=== PATIENT | male | born 1945 | race Hispanic/Latino ===

== ENCOUNTER 2016-09-24 17:42 | Emergency (ER) | payer MEDICARE ==
[2016-09-24 17:46] VITALS: BMI 25.0
[2016-09-24 17:49] VITALS: TEMP 97.8
[2016-09-24] MEDS ORDERED: TDAP Vaccine 0.5 mL Syr IM ONE (18:20)
[2016-09-24] MEDS ORDERED: Absorbable Gelatin Sponge Size 12-7 ONE (18:50)
--- NOTE | 2016-09-24 18:50 | ED PDOC ---
Arrival/HPI <Aislinn Kendrick - Last Filed: 09/24/16 19:08> - General Historian: Patient - History of Present Illness Symptom Onset: Sudden Symptom Course: Unchanged Context: Home <Faustino Escamilla - Last Filed: 09/24/16 19:16> - General Chief Complaint: Trauma Time Seen by Provider: 09/24/16 17:58 - History of Present Illness Narrative History of Present Illness (Text): 09/24/16 19:01 A 71 year old male presents to the emergency department after fall and hitting head. Patient reports was moving a chair up a set of stairs with assistance, states chair got heavier and missed a step and fell to his right side, hitting head and arm. Patient notes pain to right side of head. Patient denies loss of consciousness, dizziness, chest pain, back pain or any other complaints at this time. Patient tetanus status unknown. (Faustino Escamilla) Modifying Factors (Text): none (Faustino Escamilla) Past Medical History - Provider Review Nursing Documentation Reviewed: Yes - Tetanus Immunization Tetanus Immunization: Unknown - Cardiac Hx Cardiac Disorders: Yes Hx Hypertension: Yes - Endocrine/Metabolic Hx Endocrine Disorders: Yes Hx Diabetes Mellitus Type 2: Yes - Genitourinary/Gynecological Hx Prostate Problems: Yes - Psychiatric Hx Substance Use: No - Surgical History Hx Cholecystectomy: Yes - Anesthesia Hx Anesthesia: Yes Hx Anesthesia Reactions: No Hx Malignant Hyperthermia: No <Faustino Escamilla - Last Filed: 09/24/16 19:16> Family/Social History - Physician Review Nursing Documentation Reviewed: Yes Family/Social History: No Known Family HX Smoking Status: Never Smoked Hx Alcohol Use: No Hx Substance Use: No <Faustino Escamilla - Last Filed: 09/24/16 19:16> Allergies/Home Meds <Aislinn Kendrick - Last Filed: 09/24/16 19:08> <Faustino Escamilla - Last Filed: 09/24/16 19:16> Allergies/Adverse Reactions: Allergies No Known Allergies Allergy (Verified 09/24/16 18:09) Home Medications: Home Meds Medication Instructions Recorded Confirmed Glyburide/Metformin HCl 1 tab PO DAILY 03/08/13 09/24/16 [Glyburide/Metformin 5 mg-500 mg] Ramipril 5 mg PO DAILY 03/08/13 09/24/16 SITagliptin [Januvia] 100 mg PO DAILY 03/08/13 09/24/16 Atenolol [Tenormin] 50 mg PO DAILY 09/24/16 09/24/16 Review of Systems - Physician Review All systems were reviewed & negative as marked: Yes - Review of Systems Cardiovascular: absent: Chest Pain Musculoskeletal: absent: Back Pain Neurological: Headache (R side). absent: Dizziness <Faustino Escamilla - Last Filed: 09/24/16 19:16> Physical Exam Vital Signs Reviewed: Yes Temperature: Afebrile Blood Pressure: Hypertensive Pulse: Regular Respiratory Rate: Normal Appearance: Positive for: Well-Appearing, Non-Toxic, Comfortable Pain Distress: None Mental Status: Positive for: Alert and Oriented X 3 - Systems Exam Head: Present: Other (R frontal hematoma with abrasion) Pupils: Present: PERRL Extroacular Muscles: Present: EOMI Conjunctiva: Present: Normal Ears: Present: Other (normal ear (internal)) Mouth: Present: Moist Mucous Membranes Nose (External): No: Other (tenderness nasal bridge; epistaxis) Neck: No: MIDLINE TENDERNESS Respiratory/Chest: Present: Clear to Auscultation, Good Air Exchange Cardiovascular: Present: Regular Rate and Rhythm, Normal S1, S2. No: Murmurs Abdomen: Present: Normal Bowel Sounds. No: Tenderness, Distention, Peritoneal Signs Back: No: Midline Tenderness Upper Extremity: Present: Normal Inspection. No: Cyanosis, Edema Lower Extremity: Present: Normal Inspection. No: Edema Neurological: Present: GCS=15, CN II-XII Intact, Speech Normal Skin: Present: Abrasion (R side of face, superficial laceration behind R ear; upper chest ) Psychiatric: Present: Alert, Oriented x 3, Normal Insight, Normal Concentration <Faustino Escamilla - Last Filed: 09/24/16 19:16> Vital Signs Temp Pulse Resp BP Pulse Ox 09/24/16 17:47 97.8 F 80 20 152/86 H 99 Medical Decision Making <Aislinn Kendrick - Last Filed: 09/24/16 19:08> <Faustino Escamilla - Last Filed: 09/24/16 19:16> ED Course and Treatment: 09/24/16 18:50 Impression: A 71 year old male after a fall on right side, hitting head and arm. Differential Diagnosis included but are not limited to: mechanical fall with head injury r/o intracranial hemorrhage fracture Plan: -- CT cervical spine -- CT head -- CT maxillofacial -- Radiology ribs right and PA chest -- Boostrix Vaccine, Tylenol -- Reassess and disposition Prior Visits: Notes and results from previous visits were reviewed. Patient last reported to the emergency department on 03/08/13 for evaluation of left flank pain. Progress Notes: 09/24/16 19:[address] Peña to f/u CT, Xrays, reevaluate and disposition. (Faustino Escamilla) - RAD Interpretation Radiology Orders: 09/24/16 18:19 HEAD W/O CONTRAST [CT] Stat 09/24/16 18:20 MAXILLOFACIAL W/O CONTRAST [CT] Stat 09/24/16 18:22 RIBS RIGHT & PA CHEST [RAD] Stat 09/24/16 18:23 CERVICAL SPINE W/O CONTRAST [CT] Stat - Medication Orders Current Medication Orders: Discontinued Medications Acetaminophen (Tylenol 325mg Tab) 650 mg PO STAT STA Stop: 09/24/16 18:22 Last Admin: 09/24/16 18:51 Dose: 650 mg Gelatin (Gelfoam Size 12-7) Confirm Administered Dose 1 spg .ROUTE .STK-MED ONE Stop: 09/24/16 18:51 Tetanus/Reduced Diphtheria/Acell Pertussis (Boostrix Vaccine Inj) 0.5 ml IM .ONCE ONE Stop: 09/24/16 18:21 Procedure: Wound Repair - Time Performed Time Performed: 19:00 - Time Out Time Out: Side verified, Site verified, Patient ID confirmed - Performed by Performed by: Mid-level Provider - Indications Indication(s):: Other (abrasion) - Location Location:: Right, Ear Dimensions Length cm: 2 Dimensions width cm: 2 Depth:: Epidermis - Anesthetic Technique Anesthetic Technique: Oral pain medication - Wound Examination Wound Examination:: Ecchymosis - Debris Debris:: Dirt - Irrigated Irrigated with ml of normal saline: 10 - Complexity Complexity:: Simple (one layer) - Wound repair method Lucio:: Tissue glue - Complications Complications: none - Patient tolerated procedure Patient Tolerated Procedure:: Well <Aislinn Kendrick - Last Filed: 09/24/16 19:08> <Aislinn Kendrick - Last Filed: 09/24/16 19:08> - Scribe Statement The provider has reviewed the documentation as recorded by the Scribe <Faustino Escamilla - Last Filed: 09/24/16 19:16> - Scribe Statement Andie Damon Provider Scribe Attestation: All medical record entries made by the Scribe were at my direction and personally dictated by me. I have reviewed the chart and agree that the record accurately reflects my personal performance of the history, physical exam, medical decision making, and the department course for this patient. I have also personally directed, reviewed, and agree with the discharge instructions and disposition. (Faustino Escamilla) Disposition/Present on Arrival - Present on Arrival Any Indicators Present on Arrival: No History of DVT/PE: No History of Uncontrolled Diabetes: No Urinary Catheter: No History of Decub. Ulcer: No History Surgical Site Infection Following: None - Disposition Have Diagnosis and Disposition been Completed?: No Disposition Time: 19:11 <Aislinn Kendrick - Last Filed: 09/24/16 19:08> - Present on Arrival Any Indicators Present on Arrival: No History of DVT/PE: No History of Uncontrolled Diabetes: No Urinary Catheter: No History of Decub. Ulcer: No History Surgical Site Infection Following: None - Disposition Have Diagnosis and Disposition been Completed?: No <Faustino Escamilla - Last Filed: 09/24/16 19:16> - Disposition Diagnosis: Abrasion, Head injury, Contusion, Ear lobe laceration Patient Problems: Current Active Problems Problem Status Onset Abrasion Acute Condition: STABLE Referrals: Josué Lee MD [Primary Care Provider] - Follow up with primary
--- NOTE | 2016-09-24 20:50 | CT ---
EXAM: CT Head Without Intravenous Contrast CLINICAL HISTORY: 71 years old, male; Injury or trauma; Fall; Initial encounter; Concussion / head injury; Additional info: Fall with head injury R/O fracture TECHNIQUE: Axial computed tomography images of the head/brain without intravenous contrast. This CT exam was performed using one or more of the following dose reduction techniques: automated exposure control, adjustment of the mA and/or kV according to patient size, and/or use of iterative reconstruction technique. EXAM DATE/TIME: 09/24/2016 6:19 PM COMPARISON: No relevant prior studies available. FINDINGS: BRAIN: Diffuse, age-related cortical atrophy and ventriculomegaly. No significant acute abnormality identified. No acute hemorrhage seen within the brain. No acute extra-axial fluid collections visualized. No evidence of significant mass effect within the brain. VENTRICLES: See above. BONES/JOINTS: No acute fractures or other acute bony abnormality noted. SOFT TISSUES: Diffuse soft tissue swelling in the right scalp anterolaterally. SINUSES: Visualized paranasal sinuses appear clear. MASTOID AIR CELLS: Mastoid air cells appear clear. IMPRESSION: - No evidence of acute intracranial injury or fractures. - See above for remaining findings.
--- NOTE | 2016-09-24 21:02 | CT ---
EXAM: CT Cervical Spine Without Intravenous Contrast CLINICAL HISTORY: 71 years old, male; Injury or trauma; Fall; Initial encounter; Concussion /head injury; Additional info: Fall R/O FX TECHNIQUE: Axial computed tomography images of the cervical spine without intravenous contrast. This CT exam was performed using one or more of the following dose reduction techniques: automated exposure control, adjustment of the mA and/or kV according to patient size, and/or use of iterative reconstruction technique. Coronal and sagittal reformatted images were created and reviewed. EXAM DATE/TIME: 09/24/2016 6:23 PM COMPARISON: No relevant prior studies available. FINDINGS: VERTEBRAE: Vertebrae appear demineralized. No acute cervical spine fractures visualized. No significant vertebral subluxation seen on the sagittal reformatted images. Normal alignment of C1 and C2 and of the facet joints. DISCS/SPINAL CANAL/NEURAL FORAMINA: Moderate to severe multilevel degenerative disc disease. Multilevel facet joint degenerative changes, primarily left sided. SOFT TISSUES: No acute abnormality of the visualized soft tissues is seen. LUNG APICES: Large left pleural effusion incidentally noted, in the left lung apex. This has a CT attenuation compatible with simple fluid rather than hemorrhage/a hemothorax. No pneumothorax is seen. IMPRESSION: - No acute cervical spine fractures identified. - Large left pleural effusion incidentally noted. - See above for remaining findings.
--- NOTE | 2016-09-24 21:04 | ED PDOC ---
Physical Exam Vital Signs Reviewed: Yes Vital Signs Temp Pulse Resp BP Pulse Ox 09/24/16 17:47 97.8 F 80 20 152/86 H 99 Temperature: Afebrile Blood Pressure: Normal Pulse: Regular Respiratory Rate: Normal Appearance: Positive for: Well-Appearing, Non-Toxic, Comfortable Pain Distress: None Mental Status: Positive for: Alert and Oriented X 3 Medical Decision Making ED Course and Treatment: 09/24/16 19:00 Case endorsed to me by , pending CT readings, reevaluation and disposition. 09/24/16 21:02 CT head results reviewed, read by Cely Larson MD FINDINGS: BRAIN: Diffuse, age-related cortical atrophy and ventriculomegaly. No significant acute abnormality identified. No acute hemorrhage seen within the brain. No acute extra-axial fluid collections visualized. No evidence of significant mass effect within the brain. VENTRICLES: See above. BONES/JOINTS: No acute fractures or other acute bony abnormality noted. SOFT TISSUES: Diffuse soft tissue swelling in the right scalp anterolaterally. SINUSES: Visualized paranasal sinuses appear clear. MASTOID AIR CELLS: Mastoid air cells appear clear. IMPRESSION: - No evidence of acute intracranial injury or fractures. - See above for remaining findings. 09/24/16 21:05 CT Cervical Spine results reviewed, read by Cely Larson MD FINDINGS: VERTEBRAE: Vertebrae appear demineralized. No acute cervical spine fractures visualized. No significant vertebral subluxation seen on the sagittal reformatted images. Normal alignment of C1 and C2 and of the facet joints. DISCS/SPINAL CANAL/NEURAL FORAMINA: Moderate to severe multilevel degenerative disc disease. Multilevel facet joint degenerative changes, primarily left sided. SOFT TISSUES: No acute abnormality of the visualized soft tissues is seen. LUNG APICES: Large left pleural effusion incidentally noted, in the left lung apex. This has a CT attenuation compatible with simple fluid rather than hemorrhage/a hemothorax. No pneumothorax is seen. IMPRESSION: - No acute cervical spine fractures identified. - Large left pleural effusion incidentally noted. - See above for remaining findings. 09/24/16 21:09 EXAM: CT Maxillofacial reviewe, ready by Cely Larson MD FINDINGS: BONES/JOINTS: No acute fractures seen. No evidence of acute dislocation. SOFT TISSUES: Right facial soft tissue swelling. ORBITS: Intraorbital soft tissues appear grossly intact. No evidence of significant orbital emphysema. SINUSES: Minimal to mild mucosal thickening in the bilateral maxillary and bilateral ethmoid sinuses. No evidence of sinus fluid levels. NASOPHARYNX: Nasal septal deviation. IMPRESSION: - No acute facial bone fractures identified. - See above for remaining findings. 09/24/16 21:[address] findings with the patient including the incidental finding of left sided pleural effusion, and the need to follow up with PMD within few days for this finding. - RAD Interpretation Radiology Orders: 09/24/16 18:19 HEAD W/O CONTRAST [CT] Stat 09/24/16 18:20 MAXILLOFACIAL W/O CONTRAST [CT] Stat 09/24/16 18:22 RIBS RIGHT & PA CHEST [RAD] Stat 09/24/16 18:23 CERVICAL SPINE W/O CONTRAST [CT] Stat - Medication Orders Current Medication Orders: Discontinued Medications Acetaminophen (Tylenol 325mg Tab) 650 mg PO STAT STA Stop: 09/24/16 18:22 Last Admin: 09/24/16 18:51 Dose: 650 mg Gelatin (Gelfoam Size 12-7) Confirm Administered Dose 1 spg .ROUTE .STK-MED ONE Stop: 09/24/16 18:51 Tetanus/Reduced Diphtheria/Acell Pertussis (Boostrix Vaccine Inj) 0.5 ml IM .ONCE ONE Stop: 09/24/16 18:21 Last Admin: 09/24/16 20:39 Dose: 0.5 ml - Scribe Statement The provider has reviewed the documentation as recorded by the Monik Roland Provider Attestation: Provider Scribe Attestation: All medical record entries made by the Nicoleibgopi were at my direction and personally dictated by me. I have reviewed the chart and agree that the record accurately reflects my personal performance of the history, physical exam, medical decision making, and the department course for this patient. I have also personally directed, reviewed, and agree with the discharge instructions and disposition. Disposition/Present on Arrival - Present on Arrival Any Indicators Present on Arrival: No History of DVT/PE: No History of Uncontrolled Diabetes: No Urinary Catheter: No History of Decub. Ulcer: No History Surgical Site Infection Following: None - Disposition Have Diagnosis and Disposition been Completed?: Yes Diagnosis: Abrasion, Head injury, Contusion, Ear lobe laceration Disposition: HOME/ ROUTINE Disposition Time: 21:15 Condition: STABLE Additional Instructions: Please follow up with your doctor tomorrow regarding the fluid seen in her left lung. Return to the ER for any new concerning or worsening symptoms or for any other concerns. Referrals: Josué Lee MD [Primary Care Provider] - Follow up with primary
--- NOTE | 2016-09-24 21:08 | CT ---
EXAM: CT Maxillofacial Without Intravenous Contrast CLINICAL HISTORY: 71 years old, male; Injury or trauma; Fall; Initial encounter; Concussion /head injury; Loss of consciousness not known; Additional info: Fall with head injury R/O fracture TECHNIQUE: Axial computed tomography images of the face without intravenous contrast. This CT exam was performed using one or more of the following dose reduction techniques: automated exposure control, adjustment of the mA and/or kV according to patient size, and/or use of iterative reconstruction technique. Coronal and sagittal reformatted images were created and reviewed. EXAM DATE/TIME: 09/24/2016 6:20 PM COMPARISON: No relevant prior studies available. FINDINGS: BONES/JOINTS: No acute fractures seen. No evidence of acute dislocation. SOFT TISSUES: Right facial soft tissue swelling. ORBITS: Intraorbital soft tissues appear grossly intact. No evidence of significant orbital emphysema. SINUSES: Minimal to mild mucosal thickening in the bilateral maxillary and bilateral ethmoid sinuses. No evidence of sinus fluid levels. NASOPHARYNX: Nasal septal deviation. IMPRESSION: - No acute facial bone fractures identified. - See above for remaining findings.
[2016-09-24 21:30] VITALS: BP 140/77; PULSE 67; RESP 17; O2SAT 100
--- NOTE | 2016-09-25 09:28 | RAD ---
PROCEDURE: Radiographs of the Chest and Right Ribs. HISTORY: fall r/o fx COMPARISON: None available. TECHNIQUE: Frontal radiograph of the chest and multiple oblique radiographs of the right ribs were obtained. FINDINGS: RIGHT RIBS: No fracture or focal lesion visualized. LUNGS: Clear. PLEURA: There is a small pleural effusion on the left CARDIOVASCULAR: Normal sized heart. No pulmonary vascular congestion. OTHER FINDINGS: None. IMPRESSION: Unremarkable radiographs of the chest and right ribs. No right rib fracture.
== END 2016-09-24 21:45 | disposition home or self-care (01) ==
LOC: ED 17:42
DX: S09.90XA Unspecified injury of head, initial encounter (principal); S00.93XA Contusion of unspecified part of head, initial encounter; S00.91XA Abrasion of unspecified part of head, initial encounter; S01.311A Laceration without foreign body of right ear, initial encounter; W10.9XXA Fall (on) (from) unspecified stairs and steps, initial encounter; Z23 Encounter for immunization; E11.9 Type 2 diabetes mellitus without complications; I10 Essential (primary) hypertension

== ENCOUNTER 2016-10-14 11:02 | Day surgery (SDC) | payer MEDICARE ==
[2016-10-14 11:20] LABS: ADD MANUAL DIFF? NO
[2016-10-14 11:26] LABS: BASO # 0.01 K/mm3 (0.0-2.0); BASO % 0.2 % (0.0-3.0); EOS # 0.1 (0.0-0.7); GRAN # 4.61 (1.4-6.5); GRAN % 71.1 % (50.0-68.0); HEMATOCRIT 42.8 % (42.0-52.0); LYMPH # 1.4 (1.2-3.4); LYMPH % 21.6 % (22.0-35.0); MEAN CELL VOLUME 80.1 fL (80.0-105.0); MEAN CORPUSCULAR HGB CONC 33.6 g/dl (31.0-37.0); MEAN PLATELET VOLUME 10.5 fl (7.0-11.0); MONO # 0.3 (0.1-0.6); MONO % 5.1 % (1.0-6.0); PLATELET COUNT 163 10^3/uL (120.0-450.0); RED CELL DISTRIBUTION WIDTH 14.9 % (11.5-14.5); WHITE BLOOD COUNT 6.5 10^3/ul (4.5-11.0)
[2016-10-14 11:37] LABS: BLOOD UREA NITROGEN 20 mg/dL (7-21); CARBON DIOXIDE 23 mmol/L (21-33); CHLORIDE 103 mmol/L (98-107); GFR AFRICAN-AMERICAN > 60; INR 0.99 (0.93-1.08); PARTIAL THROMBOPLASTIN TIME 26.6 Seconds (23.7-30.8); POTASSIUM 4.5 mmol/L (3.6-5.0); SODIUM 138 mmol/L (132-148)
[2016-10-14 11:45] LABS: GLUCOSE,RANDOM 347 mg/dL (70-110)
[2016-10-14 12:02] VITALS: RESP 20; O2SAT 99
--- NOTE | 2016-10-14 12:21 | CP.SDSHP ---
Same Day Surgery H & P - History Proposed Procedure: LEFT THORACENTESIS. Pre-Op Diagnosis: left pleural effusion. - Previous Medical/Surgical History Cardiac: Hypertension Endocrine/Metabolic: Diabetes Pain: 0. No Pain - Allergies Allergies: Allergies No Known Allergies Allergy (Verified 09/24/16 18:09) - Physical Exam General Appearance: WNL. Vital Signs: Vital Signs 10/14/16 11:54 Temperature 97.8 F Pulse Rate 73 Respiratory 20 Rate Blood Pressure 151/76 H O2 Sat by Pulse 99 Oximetry Mental Status: Alert & Oriented x3 Neuro: WNL Heart: WNL Lungs: Other (GECREASED BREATH SOUNDS LEFT LOWER LUNG REGION.) GI: WNL - {Optional Preform as Required} Other Pertinent Findings: RECENT ACCIDENTAL FALL.prostatic hypertrophy. - Impression Impression: left pleural effusion. - Date & Time Date: 10/14/16 Time: 12:20 Short Stay Discharge - Short Stay Discharge Admitting Diagnosis/Reason for Visit: PLEURAL EFFUSION J90 Disposition: HOME/ ROUTINE Referrals: Josué Lee MD [Primary Care Provider] -
[2016-10-14 14:19] LABS: BODY FLUID TYPE PLEURAL
[2016-10-14 14:20] LABS: BF GROSS APPEARANCE SL CLOUDY (CLEAR)
[2016-10-14 14:21] LABS: BODY FLUID TOTAL COUNT 100 (0-0)
[2016-10-14 14:25] VITALS: PULSE 66
--- NOTE | 2016-10-14 14:41 | US ---
PROCEDURE: Ultrasound guided left thoracentesis. CLINICAL HISTORY: New moderate to large left pleural effusion. Shortness of breath. Needs diagnostic and therapeutic thoracentesis PHYSICIAN(S): Doc Ambrocio MD. TECHNIQUE: The relative risks and indications of the procedure were explained to the patient and consent obtained. The patient was placed in a sitting position on the stretcher and sonography of the chest performed. This revealed a moderate to large left pleural effusion. A left posterolateral intercostal approach was selected and the area prepped and draped usual sterile fashion. 1% Xylocaine was used to anesthetize the skin and soft tissues. A 7 Burmese thoracentesis catheter was trocared into the left pleural cavity and 1500 ccof clear yellow fluid aspirated. Specimens were sent to the lab. IMPRESSION: 1. Ultrasound guided left thoracentesis. 1500 cc of clear yellowfluid were aspirated.
--- NOTE | 2016-10-14 15:39 | RAD ---
HISTORY: lt thoracentesis COMPARISON: CT chest 10/09/2016 TECHNIQUE: Chest PA and lateral FINDINGS: LUNGS: The prior CT suggested left pleural effusion with mild compressive atelectasis is not appreciated on this exam. No interval consolidation noted PLEURA: No significant pleural effusion identified. No pneumothorax apparent. CARDIOVASCULAR: Normal. OSSEOUS STRUCTURES: Prominent thoracic spondylosis VISUALIZED UPPER ABDOMEN: Normal. OTHER FINDINGS: None. IMPRESSION: No active disease.
[2016-10-14 15:45] VITALS: BP 134/75; TEMP 97.9
== END 2016-10-14 15:40 | disposition home or self-care (01) ==
LOC: OPSURG 11:02
PROVIDERS: ATTEND Radiology Vascular & Interventional Radiology
DX: J90 Pleural effusion, not elsewhere classified (principal); I10 Essential (primary) hypertension; E11.9 Type 2 diabetes mellitus without complications